=== PATIENT | male | born 1990 | race Caucasian/White ===

== ENCOUNTER 2018-01-06 20:47 | Emergency (ER) | payer OTHER ==
[2018-01-06 21:07] VITALS: BP 152/82
--- NOTE | 2018-01-06 21:21 | UC ---
Skin Complaint HPI - HPI Summary HPI Summary: 27 yo male presents with rash on right abdomen noticed yesterday and spread to right flank today. Mild burning pain when rubbing against clothes. Denies fever , chills, recent illness. Of note - his first son was born yesterday and he has been in the nursery and around his son. - History of Current Complaint Chief Complaint: UCSkin Time Seen by Provider: 01/06/18 21:21 Stated Complaint: RASH Hx Obtained From: Patient Onset/Duration: Sudden Onset Onset Severity: Mild Current Severity: Mild Pain Intensity: 2 Pain Scale Used: 0-10 Numeric - Allergy/Home Medications Allergies/Adverse Reactions: Allergies Allergy/AdvReac Type Severity Reaction Status Date / Time Seasonal Allergy Itching Uncoded 01/06/18 21:03 Review of Systems Constitutional: Negative Skin: Rash Respiratory: Negative Cardiovascular: Negative Gastrointestinal: Negative Neurovascular: Negative Neurological: Negative Psychological: Negative All Other Systems Reviewed And Are Negative: Yes PMH/Surg Hx/FS Hx/Imm Hx - Additional Past Medical History Additional PMH: None Previously Healthy: Yes - Surgical History Surgical History: None - Family History Known Family History: Positive: None - Social History Occupation: Employed Full-time Lives: With Family Alcohol Use: Occasionally Substance Use Type: None Smoking Status (MU): Never Smoked Tobacco Physical Exam - Summary Physical Exam Summary: GENERAL: NAD. WDWN. No pain distress. SKIN: At the dermatome of ~T10/T9: Right side abdomen with mildly erythematous cluster of vesicles. Right flank with similar lesions. No streaking, bleeding, or drainage. NECK: Supple. Nontender. No lymphadenopathy. CHEST: No accessory muscle use. Breathing comfortably and in no distress. CV: RRR. Without m/r/g. NEURO: Alert. CN II-XII grossly intact. PSYCH: Age appropriate behavior. Triage Information Reviewed: Yes Vital Signs: Initial Vital Signs Temp 99.4 F 01/06/18 21:03 Pulse 86 01/06/18 21:03 Resp 20 01/06/18 21:03 BP 152/82 01/06/18 21:03 Pulse Ox 99 01/06/18 21:03 Course/Dx - Course Course Of Treatment: Shingles right side dermatome T9/10. I have advised him to avoid direct contact with his son and to keep all areas of shingles covered at all times. He was agreeable to this plan. Approx 2215 I [place] [facility] [place] told me that pt made the nursing staff aware he was dx'd with shingles. Caller and other staff on the floor expressed concern about allowing pt on the floor around other newborns. I voiced that shingles is not airborne and is less contagious than "chicken pox" - [facility], via their website, recommends to keep the area covered and wash hands. However, given the concerns of the maternity staff, risk of potential varicella outbreak on the floor to other newborns/patients, and that the pt's son is being discharged in the morning - I advised the caller to please restrict the pt from the floor and if pt or his family members had any concerns about this to please call the managed care liaison vocational rehab consultant or maternity coverage provider. - Diagnoses Provider Diagnoses: Shingles right abdomen Discharge - Sign-Out/Discharge Documenting (check all that apply): Discharge/Admit/Transfer - Discharge Plan Condition: Stable Disposition: HOME Prescriptions: Gabapentin CAP(*) [Neurontin 100 mg CAP(*)] 100 mg PO TID PRN #21 cap PRN Reason: Pain ValACYclovir (*) [Valtrex 1 GM(*)] 1 gm PO TID #21 tab Patient Education Materials: Shingles (ED) [facility] - Additional Instructions: If you develop a fever, shortness of breath, chest pain, new or worsening symptoms - please call your PCP or go to the ED. Your blood pressure was high at todays visit. Please see your primary provider within 4 weeks for recheck and re-evaluation. 1) Please keep the areas covered and do not have direct contact with your child until the lesions have crusted and are well healed (about 10 days) . - Billing Disposition and Condition Condition: STABLE Disposition: Home
[2018-01-06] MEDS ORDERED: Acyclovir* 200 MG CAP PO ONE (21:28)
== END 2018-01-06 21:40 | disposition home or self-care (01) ==
LOC: UCEAST 20:47
DX: B02.9 Zoster without complications (principal)
CPT/HCPCS: 99202; A9270-GY; G0463